=== PATIENT | male | born 1990 | race Two or more races ===

== ENCOUNTER 2021-12-15 12:44 | Emergency (ER) | payer SELFPAY ==
[~2021-12-15] VITALS: Ht 165.1 cm; Wt 136.1 kg
[2021-12-15] MEDS ORDERED: KETOROLAC TROMETHAMINE 30 MG INJ IM ONE (13:00)
[2021-12-15] MEDS ORDERED: ACETAMINOPHEN ES 500 MG TABLET PO ONE (13:00)
[2021-12-15] MEDS ORDERED: KETOROLAC TROMETHAMINE 30 MG INJ ONE (13:12)
[2021-12-15] MEDS ORDERED: ACETAMINOPHEN ES 500 MG TABLET ONE (13:12)
--- NOTE | 2021-12-15 13:16 | NUR ---
PT WAS EVALUATED BY DR MONROE. PT WAS D/C'd TO HOME. D/C INSTRUCTIONS GIVEN TO THE PT BY DR MONROE.
[2021-12-15 13:17] VITALS: BP 132/79
== END 2021-12-15 13:20 | disposition home or self-care (01) ==
LOC: ER 12:44
DX: R51.9 Headache, unspecified (principal); I10 Essential (primary) hypertension
CPT/HCPCS: 96372; 99283; J1885; A4663; A9150

== ENCOUNTER 2023-06-14 09:17 | Emergency (ER) | payer OTHER ==
[~2023-06-14] VITALS: Ht 167.6 cm; Wt 82.6 kg
[2023-06-14 09:32] VITALS: O2SAT 98
[2023-06-14] MEDS ORDERED: CEPH500T PO (09:42)
[2023-06-14] MEDS ORDERED: CIPR5DRO RIGHTEYE (09:42)
== END 2023-06-14 09:51 | disposition home or self-care (01) ==
LOC: ER 09:17
DX: H00.011 Hordeolum externum right upper eyelid (principal)
CPT/HCPCS: A4663

== ENCOUNTER 2024-04-01 15:55 | Emergency (ER) | payer SELFPAY ==
[~2024-04-01] VITALS: Ht 165.1 cm; Wt 79.4 kg
[~2024-04-01 15:55] MED LIST: CEPH500T PO; CIPR5DRO RIGHTEYE
[2024-04-01] MEDS ORDERED: MECLIZINE HCL 25 MG TABLET ONE (16:41)
[2024-04-01] MEDS ORDERED: LORAZEPAM 2 MG/1 ML VIAL ONE (16:42)
[2024-04-01] MEDS: MECLIZINE HCL 25 MG TABLET PO ONE (16:56)
[2024-04-01] MEDS: LORAZEPAM 2 MG/1 ML VIAL IV ONE (17:17)
[2024-04-01] MEDS: IV NORMAL SALINE 1000 ML BAG IV ONE (17:17)
[2024-04-01] MEDS ORDERED: MECL-159 PO (18:41)
[2024-04-01 19:09] VITALS: BP 140/82; TEMP 97.8; O2SAT 100
== END 2024-04-01 18:30 | disposition home or self-care (01) ==
LOC: ER 15:56
DX: R42 Dizziness and giddiness (principal); Z79.899 Other long term (current) drug therapy
CPT/HCPCS: 99283; 96374; 96361; 36415; J2060; J7040; A4606; A4663; J8597